=== PATIENT | female | born 1995 | race Two or more races ===

== ENCOUNTER 2016-04-20 14:06 | Emergency (ER) | payer OTHER ==
[2016-04-20] MEDS ORDERED: ZOFRAN ODT4 MG PO (15:00)
== END 2016-04-20 15:10 ==
LOC: EDMED 14:06
DX: S06.0X0A Concussion without loss of consciousness, initial encounter (principal); W21.02XA Struck by soccer ball, initial encounter; Y93.66 Activity, soccer; Y92.219 Unspecified school as the place of occurrence of the external cause; Y99.8 Other external cause status
CPT/HCPCS: J2405; J7030